=== PATIENT | female | born 1960 | race Hispanic/Latino ===

== ENCOUNTER 2024-05-05 07:25 | Inpatient (IN) | payer MEDICARE, OTHER ==
[2024-05-05 08:23] LABS: #Basophils 0.05 10x3/uL (0.0-0.2); %Basophils 0.9 % (0.0-1.0); %Eosinophils 2.8 % (0.0-10.0); %Lymphocytes 32.9 % (21.0-51.0); Hematocrit 37.1 % (36.0-47.0); Mean Corpuscular HGB CONC 32.3 g/dL (32.0-36.0); Mean Corpuscular Hemoglobin 29.4 pg (27.0-31.0); Mean Corpuscular Volume 90.9 fL (78.0-98.0); Mean Platelet Volume 9.3 fL (7.4-10.4); Platelet Count 230 10x3/uL (130-400); RBC Distribution Width 15.9 % (11.5-14.5); Red Blood Cell (RBC) Count 4.08 mill/uL (4.20-5.40)
[2024-05-05 08:40] LABS: ALT (SGPT) 10 U/L (8-55); AST (SGOT) 27 U/L (5-34); Albumin 2.9 g/dL (3.4-4.8); Alkaline Phosphatase 43 U/L (40-110); Anion Gap 8 mmol/L (10-20); BUN (Urea Nitrogen) 21 mg/dL (9.8-20.1); Bilirubin, Total 0.3 mg/dL (0.2-1.2); Calc. Creatinine Clearance 0 mL/min (70-130); Calcium 8.4 mg/dL (7.8-10.44); Carbon Dioxide 26 mmol/L (23-31); Chloride 107 mmol/L (98-107); Estimated GFR 99; Globulin 3.1 g/dL (2.4-3.5); Glucose 87 mg/dL (80-115); Potassium 3.1 mmol/L (3.5-5.1); Sodium 138 mmol/L (136-145)
[2024-05-05 08:54] LABS: INR-International Normal Ratio 1.4; Prothrombin Time 16.8 sec (12.0-14.7)
[2024-05-05 08:55] LABS: PTT 33.3 sec (22.9-36.1)
[2024-05-05] MEDS ORDERED: Iopamidol-370 76% 500 ML MDV (1 ML CHARGE) ONE (09:30)
[2024-05-05 09:31] LABS: Troponin I Less than 0.010 ng/mL (< 0.028)
[2024-05-05 09:31] LABS: Bacteria/HPF None Seen HPF (None Seen); Bilirubin Negative (Negative); Blood, Urine Negative (Negative); CAUTI Indications for Culture Alt mental st,lethar; Clarity Clear (Clear); Glucose, Urine (Dipstick) Normal (Negative); Ketone, Urine Negative (Negative); Leukocyte 75 Leu/uL (Negative); Nitrite Negative (Negative); Protein, Urine (Dipstick) 10 mg/dL (Neg-Trace); RBC/HPF 0-3 HPF (0-3); Squamous Epithelial 0-3 HPF (0-3); Urobilinogen Normal mg/dL (Less than 2); WBC/HPF 0-3 HPF (0-3)
[2024-05-05 09:33] LABS: Specific Gravity, Urine Greater than 1.060 (1.002-1.036); Urine Culture Reflex No No
[2024-05-05] MEDS ORDERED: Aspirin Chewable 81 MG TAB ONE ×2 (11:22→11:34)
[2024-05-05] MEDS ORDERED: Dextrose 5% in Water 1,000 ML IV PRN (14:18)
[2024-05-05] MEDS ORDERED: Ondansetron PF 4 MG/2 ML Vial IVP PRN (14:18)
[2024-05-05] MEDS ORDERED: Dextrose 50% Abboject 50 ML SYRINGE SLOW IVP PRN (14:18)
[2024-05-05] MEDS ORDERED: Glucagon 1 MG/ML KIT IM PRN (14:18)
[2024-05-05] MEDS ORDERED: hydrALAZINE 20 MG/ML VIAL SLOW IVP PRN (14:18)
[2024-05-05 14:32] VITALS: BMI 45.8
[2024-05-05] MEDS ORDERED: Potassium Chloride 20 MEQ TAB ONE (15:00)
[2024-05-05] MEDS ORDERED: Acetaminophen 325 MG TAB ONE (15:00)
[2024-05-05] MEDS: Potassium Chloride 20 MEQ TAB PO SCH (15:06)
[2024-05-05] MEDS: Acetaminophen 325 MG TAB PO PRN (15:06)
[2024-05-05] MEDS ORDERED: HYDROcodone/Acetaminophen 5/325 mg Tablet ONE (18:01)
[2024-05-05] MEDS ORDERED: Atorvastatin Calcium 40 MG TAB ONE (21:50)
[2024-05-05] MEDS ORDERED: Famotidine 20 MG TAB ONE (21:51)
[2024-05-05] MEDS ORDERED: Apixaban 5 MG TAB ONE (21:51)
[2024-05-05] MEDS: Apixaban 5 MG TAB PO SCH (21:53)
[2024-05-05] MEDS: Famotidine 20 MG TAB PO SCH (21:57)
[2024-05-05] MEDS: Atorvastatin Calcium 40 MG TAB PO SCH (21:59)
[2024-05-05] MEDS: HYDROcodone/Acetaminophen 5/325 mg Tablet PO SCH (23:50)
[2024-05-05] MEDS: QUEtiapine 25 MG TAB PO SCH (23:51)
[2024-05-06 05:16] LABS: Anion Gap 11 mmol/L (10-20); BUN (Urea Nitrogen) 13 mg/dL (9.8-20.1); Calc. Creatinine Clearance 161 mL/min (70-130); Calcium 8.4 mg/dL (7.8-10.44); Carbon Dioxide 23 mmol/L (23-31); Chloride 112 mmol/L (98-107); Cholesterol 95 mg/dl (< 200 Desired); Estimated GFR 100; Glucose 100 mg/dL (80-115); HDL Cholesterol 32 mg/dL (>60 Neg Risk); LDL Cholesterol, Calculated 50 mg/dL; Potassium 3.9 mmol/L (3.5-5.1); Sodium 142 mmol/L (136-145); Triglycerides 64 mg/dL (Less than 150)
[2024-05-06] MEDS: Potassium Chloride 20 MEQ TAB PO SCH (09:23)
[2024-05-06] MEDS: Aspirin 81 mg Enteric Coated Tablet PO SCH (09:23)
[2024-05-06] MEDS: HYDROcodone/Acetaminophen 5/325 mg Tablet PO PRN (11:28)
[2024-05-06] MEDS: Insulin Regular, Human 100 UNIT/ML 10 ML VIAL SC PRN (12:14)
[2024-05-06] MEDS: Carbidopa/Levodopa CR 50-200 mg Tablet PO SCH (17:48)
[2024-05-06] MEDS: Mometasone 200 MCG/Formoterol 5 MCG 120 PUFF INHALER INH SCH (19:07)
[2024-05-06] MEDS: Trihexyphenidyl 2 MG TAB PO SCH (21:11)
[2024-05-06] MEDS: Gabapentin 300 MG CAP PO SCH (21:12)
[2024-05-06] MEDS: Fenofibrate Nanocrystallized 145 MG TAB PO SCH (21:13)
[2024-05-06] MEDS: traZODone HCl 50 MG TAB PO SCH (21:14)
[2024-05-07 03:48] LABS: #Basophils 0.07 10x3/uL (0.0-0.2); %Basophils 0.8 % (0.0-1.0); %Eosinophils 1.9 % (0.0-10.0); %Lymphocytes 24.3 % (21.0-51.0); %Monocytes 8.1 % (0.0-10.0); %Neutrophils 64.7 % (42.0-75.0); Hematocrit 41.3 % (36.0-47.0); Hemoglobin 13.5 g/dL (12.0-16.0); Mean Corpuscular HGB CONC 32.7 g/dL (32.0-36.0); Mean Corpuscular Hemoglobin 29.7 pg (27.0-31.0); Mean Corpuscular Volume 90.8 fL (78.0-98.0); Mean Platelet Volume 8.8 fL (7.4-10.4); Platelet Count 272 10x3/uL (130-400); RBC Distribution Width 15.8 % (11.5-14.5); Red Blood Cell (RBC) Count 4.55 mill/uL (4.20-5.40)
[2024-05-07 04:10] LABS: Anion Gap 14 mmol/L (10-20); BUN (Urea Nitrogen) 9 mg/dL (9.8-20.1); Calc. Creatinine Clearance 159 mL/min (70-130); Carbon Dioxide 22 mmol/L (23-31); Chloride 110 mmol/L (98-107); Estimated GFR 100; Glucose 133 mg/dL (80-115); Potassium 3.8 mmol/L (3.5-5.1); Sodium 142 mmol/L (136-145)
[2024-05-07] MEDS: Levothyroxine Sodium 100 MCG TAB PO SCH (05:13)
[2024-05-07] MEDS: Gabapentin 300 MG CAP PO SCH (08:42)
[2024-05-07] MEDS: Carbidopa/Levodopa CR 50-200 mg Tablet PO SCH (08:42)
[2024-05-07] MEDS: Sertraline 25 MG TAB PO SCH (08:42)
[2024-05-07 16:12] VITALS: BP 131/89; TEMP 97.8
== END 2024-05-07 16:54 | DRG 69 ==
LOC: ERS 07:25 → ERHOLD 11:13 → 2SE 22:35
PROVIDERS: ADMIT Family Medicine; ATTEND Internal Medicine
DX: G45.9 Transient cerebral ischemic attack, unspecified (principal); I48.20 Chronic atrial fibrillation, unspecified; I50.32 Chronic diastolic (congestive) heart failure; E78.5 Hyperlipidemia, unspecified; G20.A1 Parkinson's disease without dyskinesia, without mention of fluctuations; E03.9 Hypothyroidism, unspecified; E11.9 Type 2 diabetes mellitus without complications; Z66 Do not resuscitate; E66.01 Morbid (severe) obesity due to excess calories; I11.0 Hypertensive heart disease with heart failure; G89.29 Other chronic pain; M54.9 Dorsalgia, unspecified; E87.6 Hypokalemia; Z79.899 Other long term (current) drug therapy
CPT/HCPCS: 0042T; 36415; 36416; 70450; 70496; 70498; 70551; 71045; 80048; 80053; 80061; 81001; 84484; 85025; 85610; 85730; 93005; J1815; Q9967